=== PATIENT | female | born 1955 | race Caucasian/White ===

== ENCOUNTER 2023-01-18 09:35 | Inpatient (IN) | payer MEDICARE, OTHER ==
[~2023-01-18] VITALS: Ht 157.5 cm; Wt 70.4 kg
[2023-01-18] VITALS (36 sets, daily range): BP systolic 88–117; BP diastolic 51–70
[2023-01-18] MEDS ORDERED: FENTANYL 2500MCG+NS 250ML 250 ML IV ONE (09:45)
[2023-01-18] MEDS ORDERED: NALOXONE HCL 0.4 MG/1 ML ML IVP STA (09:47)
[2023-01-18] MEDS ORDERED: NOREPINEPHRIN 4MG/NS 250ML 250 ML IV ONE (09:51)
[2023-01-18 09:59] LABS: ABG HCO3 18.3 mmol/L (21.0-28.0); ABG OXYGEN SATURATION 98.9 % (95.0-99.0); ABG PCO2 45 mmHg (32-45)
[2023-01-18] MEDS ORDERED: CEFTRIAXONE 1G VIAL ONE (09:59)
[2023-01-18] MEDS ORDERED: AZITHROMYCIN 500MG+NS 250ML 250 ML ONE (09:59)
[2023-01-18 10:03] LABS: HEMATOCRIT 41.8 % (36-48); MEAN CORPUSCULAR HEMOGLOBIN 29.7 pg (27.0-33.0); MEAN CORPUSCULAR HGB CONC 31.1 g/dL (32.0-36.0); MEAN CORPUSCULAR VOLUME 95.4 fL (79-99); NUCLEATED RED BLOOD CELLS 0.9 % (0.0-0.19); RED BLOOD CELL COUNT(AUTO) 4.38 MIL/uL (4.00-5.50); RED CELL DISTRIBUTION WIDTH 13.8 % (11.0-15.5); WHITE BLOOD COUNT (AUTO) 15.2 K/uL (4.8-10.8)
[2023-01-18 10:16] LABS: APPEARANCE,URINE CLOUDY (CLEAR); BILIRUBIN,URINE NEGATIVE (NEGATIVE); COLOR,URINE YELLOW (YELLOW); GLUCOSE, URINE (UA) TRACE mg/dL (NEGATIVE); KETONES,URINE NEGATIVE (NEGATIVE); LEUKOCYTE ESTERASE ,URINE NEGATIVE Leu/uL (NEGATIVE); NITRATE,URINE NEGATIVE (NEGATIVE); OCCULT BLOOD,URINE LARGE (NEGATIVE); PH,URINE 5.5 (5.0-8.0); PROTEIN,URINE 70 mg/dL (NEGATIVE); UROBILINOGEN,URINE 0.2 mg/dL (0.2-1.0)
[2023-01-18 10:19] LABS: AMPHET/METH SCREEN,URINE NEGATIVE (NEGATIVE); BARBITURATE SCREEN, URINE NEGATIVE (NEGATIVE); BENZODIAZEPINES SCREEN,URINE POSITIVE (NEGATIVE); CANNABINOID SCREEN,URINE POSITIVE (NEGATIVE); COCAINE SCREEN,URINE NEGATIVE (NEGATIVE); OPIATE SCREEN,URINE NEGATIVE (NEGATIVE); PHENCYCLIDINE SCREEN,URINE NEGATIVE (NEGATIVE)
[2023-01-18] MEDS ORDERED: ASPIRIN 300 MG SUPPOSITORY PR STA (10:20)
[2023-01-18 10:22] LABS: CREATININE 1.8 mg/dL (0.5-1.5); POTASSIUM 3.8 mmol/L (3.5-5.1); TOTAL PROTEIN, SERUM 6.1 g/dL (6.0-8.3)
[2023-01-18] MEDS ORDERED: KETAMINE 50MG/ML SYRINGE 50 MG/ML DISP.SYRIN IV ONE (10:30)
[2023-01-18] MEDS ORDERED: SOLU-MEDROL 125MG VIAL IVP ONE (10:30)
[2023-01-18] MEDS ORDERED: ENOXAPARIN SODIUM 80 MG/0.8 ML SQ ONE (10:30)
[2023-01-18 10:33] LABS: BACTERIA,URINE RARE /HPF (None Seen); MUCUS,URINE RARE LPF (None Seen)
[2023-01-18] MEDS: MIDAZOLAM 100MG-0.9% NS 100ML 50 ML IV PRN (10:49)
[2023-01-18] MEDS ORDERED: DIPHENHYDRAMINE HCL 25 MG CAPSULE PO PRN (11:30)
[2023-01-18] MEDS ORDERED: DiphenhydrAMINE HCL 50 MG/ML VIAL IV PRN (11:30)
[2023-01-18] MEDS ORDERED: MAG/ALUM/SIMETH 30 ML UDCUP PO PRN (11:30)
[2023-01-18] MEDS: NOREPINEPHRIN 4MG/NS 250ML 250 ML IV PRN ×2 (11:30→21:11)
[2023-01-18] MEDS ORDERED: LACTULOSE 20 GM/30 ML UDCUP PO PRN (11:30)
[2023-01-18] MEDS ORDERED: ACETAMINOPHEN 325 MG TAB PO PRN (11:30)
[2023-01-18] MEDS ORDERED: KCL 20 MEQ ERTAB PO PRN (11:30)
[2023-01-18] MEDS ORDERED: NITROGLYCERIN 0.4 MG SL TAB SL PRN (11:30)
[2023-01-18] MEDS ORDERED: LIDOCAINE HCL-MPF 1% 2ML VIAL IV PRN (11:30)
[2023-01-18] MEDS ORDERED: PHARMACY COMMUNICATION MISC PRN (12:00)
[2023-01-18] MEDS ORDERED: LACTATED RINGERS 1000ML 1,503 ML IV SCH (12:00)
[2023-01-18] MEDS ORDERED: CHLORDIAZEPOXIDE HCL 25 MG CAP PO PRN (12:00)
[2023-01-18] MEDS ORDERED: ZOSYN 3.375GM+NS 50ML 50 ML IVPB SCH (12:30)
[2023-01-18] MEDS: 0.9%NACL 1000ML 1,000 ML IV SCH ×2 (12:44→20:04)
[2023-01-18 12:57] LABS: SALICYLATE 4.6 mg/dL (2.8-20.0)
[2023-01-18] MEDS ORDERED: ZOSYN 3.375GM+NS 50ML 50 ML IV SCH (13:00)
[2023-01-18 13:07] LABS: CRP QUANTITATIVE 2.8 mg/L (0.00-9.0); THYROID STIMULATING HORMONE 0.8 uIU/mL (0.36-3.74)
[2023-01-18 13:13] LABS: INR 1.34 (0.85-1.15); PROTHROMBIN TIME 14.4 SEC (9.6-11.6)
[2023-01-18 13:14] LABS: PARTIAL THROMBOPLASTIN TIME 30.6 SEC (26.3-35.5)
[2023-01-18] MEDS ORDERED: DEXTROSE 50%-WATER 50 ML DISP.SYRIN IV PRN (15:00)
[2023-01-18] MEDS ORDERED: GLUCAGON 1MG KIT 1 MG ML IM PRN (15:00)
[2023-01-18] MEDS ORDERED: ACET-2041 PO (15:13)
[2023-01-18] MEDS ORDERED: ASPI-1190 PO (15:13)
[2023-01-18] MEDS ORDERED: DESV100T6 PO (15:13)
[2023-01-18] MEDS ORDERED: TRAZ-187 PO (15:13)
[2023-01-18] MEDS ORDERED: TRAZ-185 PO (15:13)
[2023-01-18 15:15] LABS: ABG BASE EXCESS -3.5 mmol/L (-2.0-3.0); ABG HCO3 21.8 mmol/L (21.0-28.0); ABG OXYGEN SATURATION 96.5 % (95.0-99.0); ABG PCO2 40 mmHg (32-45)
[2023-01-18] MEDS: HEPARIN 5,000 UNIT VIAL SQ SCH ×2 (15:18→20:43)
[2023-01-18] MEDS: INSULIN HUMULIN R 100 UNIT/ML 3ML SQ SCH ×2 (17:44→23:41)
[2023-01-18 18:23] LABS: MYOGLOBIN 589 ng/mL (10-92)
[2023-01-18 18:30] LABS: CREATINE KINASE, TOTAL 497 U/L (21-232)
[2023-01-18] MEDS ORDERED: LACTATED RINGERS 1000ML IV SCH (20:00)
[2023-01-18] MEDS: CHLORHEXIDINE GLUCONATE 473 ML MOUTHWASH MM SCH (20:06)
[2023-01-18] MEDS: LACTULOSE 20 GM/30 ML UDCUP PO SCH (20:06)
[2023-01-18] MEDS: ZOSYN 3.375GM+NS 50ML 50 ML IVPB SCH (20:17)
[2023-01-18 20:29] LABS: HEPATITIS B SURFACE ANTIGEN Non-Reactive (Nonreactive)
[2023-01-18] MEDS ORDERED: THIAMINE HCL 100 MG/ML 2ML VIAL IVP ONE (20:30)
[2023-01-18] MEDS: SOLU-MEDROL 40MG VIAL IVP SCH (20:42)
[2023-01-18] MEDS ORDERED: ENOXAPARIN SODIUM 80 MG/0.8 ML SQ SCH (21:00)
[2023-01-18] MEDS ORDERED: ATORVASTATIN 40 MG TABLET PO SCH (21:00)
[2023-01-18 21:32] LABS: MYOGLOBIN 921 ng/mL (10-92)
[2023-01-18 21:36] LABS: CREATINE KINASE, TOTAL 1000 U/L (21-232)
[2023-01-18] MEDS ORDERED: HEPARIN 25,000 UNITS/250ML D5W 250 ML IV ONE (21:56)
[2023-01-18] MEDS ORDERED: HEPARIN 25,000 UNITS/250ML D5W 250 ML IV SCH (22:00)
[2023-01-18 22:30] LABS: HEPATITIS A IGM ANTIBODY Non-Reactive (Nonreactive); HEPATITIS B CORE IGM ANTIBODY Non-Reactive (Negative)
[2023-01-18 22:34] LABS: HEPATITIS C ANTIBODY Reactive (Nonreactive)
[2023-01-18] MEDS: HEPARIN 25,000 UNITS/250ML D5W 250 ML IV SCH (22:56)
[2023-01-19] VITALS (83 sets, daily range): BP systolic 63–146; BP diastolic 27–91
[2023-01-19] MEDS: LORAZEPAM 2 MG/ML 1 ML VIAL IVP PRN ×3 (01:40→09:23)
[2023-01-19] MEDS ORDERED: FENTANYL 2500MCG+NS 250ML IV.SOLN IV SCH (02:00)
[2023-01-19] MEDS: 0.9%NACL 1000ML 1,000 ML IV SCH ×3 (03:37→20:50)
[2023-01-19 05:30] LABS: BASOPHILS % (AUTO) 0.1 % (0.0-5.0); HEMATOCRIT 37.9 % (36-48); LYMPHOCYTES % (AUTO) 12.8 % (21.0-51.0); MEAN CORPUSCULAR HEMOGLOBIN 29.7 pg (27.0-33.0); MEAN CORPUSCULAR HGB CONC 32.5 g/dL (32.0-36.0); MEAN CORPUSCULAR VOLUME 91.5 fL (79-99); NEUTROPHILS % (AUTO) 79.4 % (40.0-77.0); PLATELET COUNT (AUTO) 245 K/uL (130-400); RED BLOOD CELL COUNT(AUTO) 4.14 MIL/uL (4.00-5.50)
[2023-01-19 05:55] LABS: ALBUMIN 2.6 g/dL (3.5-5.0); CREATININE 1.8 mg/dL (0.5-1.5); MAGNESIUM 1.7 mg/dL (1.80-2.40); PHOSPHORUS 3.5 mg/dL (2.5-4.9); POTASSIUM 4.3 mmol/L (3.5-5.1); TOTAL PROTEIN, SERUM 5.5 g/dL (6.0-8.3)
[2023-01-19] MEDS: INSULIN HUMULIN R 100 UNIT/ML 3ML SQ SCH ×4 (06:00→23:29)
[2023-01-19] MEDS: NOREPINEPHRIN 4MG/NS 250ML 250 ML IV PRN ×2 (06:40→13:31)
[2023-01-19] MEDS: AZITHROMYCIN 500MG+NS 250ML IVPB SCH (07:34)
[2023-01-19] MEDS: MIDAZOLAM 100MG-0.9% NS 100ML 50 ML IV PRN (07:35)
[2023-01-19] MEDS: PANTOPRAZOLE 40 MG/VIAL IVP SCH (08:05)
[2023-01-19] MEDS: LACTULOSE 20 GM/30 ML UDCUP PO SCH ×2 (08:05→21:14)
[2023-01-19] MEDS: SOLU-MEDROL 40MG VIAL IVP SCH ×2 (08:05→21:14)
[2023-01-19] MEDS: ASPIRIN 81MG CHEW TAB PO SCH (08:06)
[2023-01-19] MEDS: CLOPIDOGREL 75MG TAB PO SCH (08:06)
[2023-01-19] MEDS: MULTIVITAMIN TABLET PO SCH (08:06)
[2023-01-19] MEDS: CHLORHEXIDINE GLUCONATE 473 ML MOUTHWASH MM SCH ×2 (08:07→21:15)
[2023-01-19] MEDS ORDERED: ENOXAPARIN SODIUM 80 MG/0.8 ML SQ SCH (09:00)
[2023-01-19] MEDS ORDERED: DEXMEDETOMIDINE 400MCG/NS100ML IV ONE (09:13)
[2023-01-19] MEDS: ZOSYN 3.375GM+NS 50ML 50 ML IVPB SCH ×2 (09:28→21:14)
[2023-01-19] MEDS: DIAZEPAM 5 MG TABLET PO SCH ×2 (10:27→17:42)
[2023-01-19] MEDS: DEXMEDETOMIDINE 400MCG/NS100ML IV SCH ×3 (12:36→22:45)
[2023-01-19 12:54] LABS: INR 1.33 (0.85-1.15); PROTHROMBIN TIME 14.3 SEC (9.6-11.6)
[2023-01-19 13:59] LABS: PARTIAL THROMBOPLASTIN TIME > 139.0 SEC (26.3-35.5)
[2023-01-19 15:35] LABS: ABG BASE EXCESS -2.8 mmol/L (-2.0-3.0); ABG HCO3 21.5 mmol/L (21.0-28.0); ABG OXYGEN SATURATION 96.9 % (95.0-99.0); ABG PCO2 36 mmHg (32-45)
[2023-01-19] MEDS ORDERED: LACTATED RINGERS 1000ML IV SCH (16:00)
[2023-01-19] MEDS: HEPARIN 25,000 UNITS/250ML D5W 250 ML IV SCH (18:28)
[2023-01-19 20:10] LABS: INR 1.23 (0.85-1.15); PROTHROMBIN TIME 13.3 SEC (9.6-11.6)
[2023-01-19 20:32] LABS: PARTIAL THROMBOPLASTIN TIME 125.7 SEC (26.3-35.5)
[2023-01-20] VITALS (24 sets, daily range): BP systolic 103–159; BP diastolic 60–98
[2023-01-20] MEDS: DIAZEPAM 5 MG TABLET PO SCH ×3 (01:15→17:02)
[2023-01-20 01:58] LABS: BASOPHILS % (AUTO) 0.1 % (0.0-5.0); HEMATOCRIT 37.2 % (36-48); LYMPHOCYTES % (AUTO) 13.7 % (21.0-51.0); MEAN CORPUSCULAR HEMOGLOBIN 29.5 pg (27.0-33.0); MEAN CORPUSCULAR HGB CONC 32.5 g/dL (32.0-36.0); MEAN CORPUSCULAR VOLUME 90.7 fL (79-99); MONOCYTES % (AUTO) 7.7 % (3.0-13.0); NEUTROPHILS % (AUTO) 77.9 % (40.0-77.0); PLATELET COUNT (AUTO) 196 K/uL (130-400); RED CELL DISTRIBUTION WIDTH 14.3 % (11.0-15.5); WHITE BLOOD COUNT (AUTO) 12.1 K/uL (4.8-10.8)
[2023-01-20 02:09] LABS: INR 1.2 (0.85-1.15); PROTHROMBIN TIME 12.9 SEC (9.6-11.6)
[2023-01-20 02:10] LABS: PARTIAL THROMBOPLASTIN TIME 78.5 SEC (26.3-35.5)
[2023-01-20 02:12] LABS: ALBUMIN 2.7 g/dL (3.5-5.0); CREATININE 1.3 mg/dL (0.5-1.5); MAGNESIUM 1.9 mg/dL (1.80-2.40); PHOSPHORUS 2.6 mg/dL (2.5-4.9); POTASSIUM 4.2 mmol/L (3.5-5.1); TOTAL PROTEIN, SERUM 5.9 g/dL (6.0-8.3)
[2023-01-20] MEDS: DEXMEDETOMIDINE 400MCG/NS100ML IV SCH ×5 (03:30→20:35)
[2023-01-20] MEDS: NOREPINEPHRIN 4MG/NS 250ML 250 ML IV PRN (04:10)
[2023-01-20] MEDS: INSULIN HUMULIN R 100 UNIT/ML 3ML SQ SCH ×3 (05:36→17:23)
[2023-01-20 07:14] LABS: ABG BASE EXCESS -1.8 mmol/L (-2.0-3.0); ABG HCO3 21.1 mmol/L (21.0-28.0); ABG OXYGEN SATURATION 97.3 % (95.0-99.0); ABG PCO2 31 mmHg (32-45)
[2023-01-20] MEDS: AZITHROMYCIN 500MG+NS 250ML IVPB SCH (08:31)
[2023-01-20 08:32] LABS: ALBUMIN 1.9 g/dL (3.5-5.0); CREATININE 0.8 mg/dL (0.5-1.5); MAGNESIUM 1.5 mg/dL (1.80-2.40); TOTAL PROTEIN, SERUM 4.1 g/dL (6.0-8.3)
[2023-01-20] MEDS: LACTULOSE 20 GM/30 ML UDCUP PO SCH ×2 (08:32→21:33)
[2023-01-20] MEDS: SOLU-MEDROL 40MG VIAL IVP SCH ×2 (08:32→21:32)
[2023-01-20] MEDS: PANTOPRAZOLE 40 MG/VIAL IVP SCH (08:32)
[2023-01-20] MEDS: CLOPIDOGREL 75MG TAB PO SCH (08:33)
[2023-01-20] MEDS: MULTIVITAMIN TABLET PO SCH (08:33)
[2023-01-20] MEDS: ASPIRIN 81MG CHEW TAB PO SCH (08:33)
[2023-01-20] MEDS: CHLORHEXIDINE GLUCONATE 473 ML MOUTHWASH MM SCH ×2 (08:34→21:34)
[2023-01-20] MEDS: 0.9%NACL 1000ML 1,000 ML IV SCH ×3 (08:34→21:37)
[2023-01-20] MEDS: ZOSYN 3.375GM+NS 50ML 50 ML IVPB SCH ×2 (08:38→21:32)
[2023-01-20 08:50] LABS: BASOPHILS % (AUTO) 0.1 % (0.0-5.0); HEMATOCRIT 35.9 % (36-48); LYMPHOCYTES % (AUTO) 19.8 % (21.0-51.0); MEAN CORPUSCULAR HEMOGLOBIN 29.9 pg (27.0-33.0); MEAN CORPUSCULAR VOLUME 93.2 fL (79-99); MONOCYTES % (AUTO) 9.1 % (3.0-13.0); NEUTROPHILS % (AUTO) 70.2 % (40.0-77.0); PLATELET COUNT (AUTO) 131 K/uL (130-400); RED BLOOD CELL COUNT(AUTO) 3.85 MIL/uL (4.00-5.50); RED CELL DISTRIBUTION WIDTH 14.2 % (11.0-15.5); WHITE BLOOD COUNT (AUTO) 8.6 K/uL (4.8-10.8)
[2023-01-20 10:13] LABS: INR 1.2 (0.85-1.15); PARTIAL THROMBOPLASTIN TIME 62.1 SEC (26.3-35.5); PROTHROMBIN TIME 12.9 SEC (9.6-11.6)
[2023-01-20] MEDS: LORAZEPAM 2 MG/ML 1 ML VIAL IVP PRN (10:37)
[2023-01-20] MEDS: POTASSIUM CHLORIDE 10% ELIXIR 20 MEQ/15 ML UDCUP PO PRN ×4 (10:57→21:50)
[2023-01-20] MEDS: MAGNESIUM 2GM PREMIX 50ML 50 ML IV PRN (10:58)
[2023-01-20] MEDS: POTASSIUM CHLORIDE 20MEQ/100ML 100 ML IV PRN (11:03)
[2023-01-20 14:15] LABS: INR 1.15 (0.85-1.15); PROTHROMBIN TIME 12.4 SEC (9.6-11.6)
[2023-01-20 14:17] LABS: PARTIAL THROMBOPLASTIN TIME 59.6 SEC (26.3-35.5)
[2023-01-20 16:07] LABS: HEMOGLOBIN A1C 5.3 % (4.0-6.0)
[2023-01-20] MEDS: FUROSEMIDE 20MG VIAL IV SCH (17:00)
[2023-01-20] MEDS: MIDAZOLAM 100MG-0.9% NS 100ML 50 ML IV PRN (20:37)
[2023-01-21] VITALS (41 sets, daily range): BP systolic 104–171; BP diastolic 43–106
[2023-01-21] MEDS: POTASSIUM CHLORIDE 10% ELIXIR 20 MEQ/15 ML UDCUP PO PRN (00:37)
[2023-01-21] MEDS: DIAZEPAM 5 MG TABLET PO SCH ×2 (00:37→09:13)
[2023-01-21] MEDS: 0.9%NACL 1000ML 1,000 ML IV SCH ×2 (00:54→13:08)
[2023-01-21] MEDS ORDERED: MIDAZOLAM HCL 1 MG/ML 2ML VIAL ONE (04:33)
[2023-01-21] MEDS: FUROSEMIDE 20MG VIAL IV SCH ×2 (04:46→16:33)
[2023-01-21] MEDS ORDERED: MIDAZOLAM HCL 1 MG/ML 2ML VIAL IVP PRN (05:00)
[2023-01-21 05:21] LABS: HEMATOCRIT 34.1 % (36-48); LYMPHOCYTES % (AUTO) 15.7 % (21.0-51.0); MEAN CORPUSCULAR HEMOGLOBIN 29.5 pg (27.0-33.0); MEAN CORPUSCULAR HGB CONC 32.3 g/dL (32.0-36.0); MEAN CORPUSCULAR VOLUME 91.4 fL (79-99); MONOCYTES % (AUTO) 5.9 % (3.0-13.0); PLATELET COUNT (AUTO) 125 K/uL (130-400); RED BLOOD CELL COUNT(AUTO) 3.73 MIL/uL (4.00-5.50); RED CELL DISTRIBUTION WIDTH 14.2 % (11.0-15.5); WHITE BLOOD COUNT (AUTO) 8.1 K/uL (4.8-10.8)
[2023-01-21] MEDS: INSULIN HUMULIN R 100 UNIT/ML 3ML SQ SCH ×5 (05:31→23:28)
[2023-01-21 05:33] LABS: INR 1.15 (0.85-1.15); PROTHROMBIN TIME 12.4 SEC (9.6-11.6)
[2023-01-21 05:34] LABS: PARTIAL THROMBOPLASTIN TIME 26.5 SEC (26.3-35.5)
[2023-01-21 05:37] LABS: ALBUMIN 2.6 g/dL (3.5-5.0); CREATININE 1.1 mg/dL (0.5-1.5); MAGNESIUM 2.5 mg/dL (1.80-2.40); PHOSPHORUS 3.3 mg/dL (2.5-4.9); POTASSIUM 4.3 mmol/L (3.5-5.1); TOTAL PROTEIN, SERUM 5.4 g/dL (6.0-8.3)
[2023-01-21] MEDS: MIDAZOLAM 100MG-0.9% NS 100ML 50 ML IV PRN (06:17)
[2023-01-21] MEDS: CHLORHEXIDINE GLUCONATE 473 ML MOUTHWASH MM SCH ×2 (08:00→21:33)
[2023-01-21] MEDS: MULTIVITAMIN TABLET PO SCH (09:12)
[2023-01-21] MEDS: SOLU-MEDROL 40MG VIAL IVP SCH ×2 (09:12→20:34)
[2023-01-21] MEDS: LACTULOSE 20 GM/30 ML UDCUP PO SCH ×2 (09:13→21:28)
[2023-01-21] MEDS: CLOPIDOGREL 75MG TAB PO SCH (09:13)
[2023-01-21] MEDS: PANTOPRAZOLE 40 MG/VIAL IVP SCH (09:13)
[2023-01-21] MEDS: ASPIRIN 81MG CHEW TAB PO SCH (09:13)
[2023-01-21] MEDS: ENOXAPARIN SODIUM 80 MG/0.8 ML SQ SCH ×2 (09:14→21:29)
[2023-01-21] MEDS: ZOSYN 3.375GM+NS 50ML 50 ML IVPB SCH ×2 (09:14→20:33)
[2023-01-21] MEDS: AZITHROMYCIN 500MG+NS 250ML IVPB SCH (09:14)
[2023-01-21 12:00] LABS: ABG BASE EXCESS -4.1 mmol/L (-2.0-3.0); ABG HCO3 19.1 mmol/L (21.0-28.0); ABG OXYGEN SATURATION 96.8 % (95.0-99.0); ABG PCO2 30 mmHg (32-45)
[2023-01-21] MEDS ORDERED: ZIPRASIDONE MESYLATE 20 MG/VIAL IM PRN (14:30)
[2023-01-21] MEDS: DIAZEPAM 5 MG/ML 2 ML SYG IM SCH ×2 (15:14→22:18)
[2023-01-21] MEDS: DEXMEDETOMIDINE 400MCG/NS100ML IV SCH ×3 (16:51→21:17)
[2023-01-21] MEDS ORDERED: LORAZEPAM 2 MG/ML 1 ML VIAL IVP PRN (20:00)
[2023-01-21] MEDS ORDERED: THIAMINE HCL 100 MG/ML 2ML VIAL IVP ONE (20:00)
[2023-01-21 23:56] LABS: ABG BASE EXCESS -2.9 mmol/L (-2.0-3.0); ABG OXYGEN SATURATION 94.6 % (95.0-99.0); ABG PCO2 29 mmHg (32-45)
[2023-01-22] VITALS (41 sets, daily range): BP systolic 99–152; BP diastolic 49–87
[2023-01-22] MEDS: IPRATROPIUM/ALBUTEROL SULFATE 3 ML SOLUTION IH SCH ×5 (01:16→23:33)
[2023-01-22] MEDS: DEXMEDETOMIDINE 400MCG/NS100ML IV SCH ×6 (01:57→23:24)
[2023-01-22] MEDS: ZIPRASIDONE MESYLATE 20 MG/VIAL IM PRN (02:39)
[2023-01-22 03:12] LABS: HEMATOCRIT 31.3 % (36-48); LYMPHOCYTES % (AUTO) 14.2 % (21.0-51.0); MEAN CORPUSCULAR HEMOGLOBIN 29.1 pg (27.0-33.0); MEAN CORPUSCULAR HGB CONC 32.6 g/dL (32.0-36.0); MEAN CORPUSCULAR VOLUME 89.2 fL (79-99); MONOCYTES % (AUTO) 7.6 % (3.0-13.0); NEUTROPHILS % (AUTO) 77.7 % (40.0-77.0); PLATELET COUNT (AUTO) 94 K/uL (130-400); RED BLOOD CELL COUNT(AUTO) 3.51 MIL/uL (4.00-5.50); RED CELL DISTRIBUTION WIDTH 13.9 % (11.0-15.5); WHITE BLOOD COUNT (AUTO) 6.5 K/uL (4.8-10.8)
[2023-01-22 03:27] LABS: ALBUMIN 2.8 g/dL (3.5-5.0); CREATININE 1.3 mg/dL (0.5-1.5); MAGNESIUM 2.4 mg/dL (1.80-2.40); POTASSIUM 4.4 mmol/L (3.5-5.1); TOTAL PROTEIN, SERUM 5.4 g/dL (6.0-8.3)
[2023-01-22] MEDS: INSULIN HUMULIN R 100 UNIT/ML 3ML SQ SCH ×4 (05:30→23:06)
[2023-01-22] MEDS: DIAZEPAM 5 MG/ML 2 ML SYG IM SCH ×3 (06:44→22:26)
[2023-01-22] MEDS: AZITHROMYCIN 500MG+NS 250ML IVPB SCH (07:50)
[2023-01-22] MEDS: CLOPIDOGREL 75MG TAB PO SCH (08:20)
[2023-01-22] MEDS: ASPIRIN 81MG CHEW TAB PO SCH (08:20)
[2023-01-22] MEDS: MULTIVITAMIN TABLET PO SCH (08:20)
[2023-01-22] MEDS: PANTOPRAZOLE 40 MG/VIAL IVP SCH (08:21)
[2023-01-22] MEDS: THIAMINE HCL 100 MG/ML 2ML VIAL IVP SCH (08:21)
[2023-01-22] MEDS: SOLU-MEDROL 40MG VIAL IVP SCH ×2 (08:21→20:27)
[2023-01-22] MEDS: LACTULOSE 20 GM/30 ML UDCUP PO SCH ×2 (08:22→20:28)
[2023-01-22] MEDS: CHLORHEXIDINE GLUCONATE 473 ML MOUTHWASH MM SCH ×2 (09:00→20:28)
[2023-01-22] MEDS: ZOSYN 3.375GM+NS 50ML 50 ML IVPB SCH ×2 (09:52→20:27)
[2023-01-22] MEDS ORDERED: CLONAZEPAM 0.5 MG TABLET SL ONE (14:30)
[2023-01-22] MEDS ORDERED: 0.9% NACL 250ML IV SCH (15:00)
[2023-01-22] MEDS ORDERED: VANCOMYCIN PROTOCOL PER PHARMACY IV SCH (15:00)
[2023-01-22] MEDS ORDERED: VANCOMYCIN 1G VIAL IVPB SCH (15:00)
[2023-01-22] MEDS ORDERED: VANCOMYCIN 1.5 GM/250 ML BAG IV ONE (16:00)
[2023-01-22] MEDS: CLONAZEPAM 0.5 MG TABLET PO PRN (17:26)
[2023-01-22] MEDS: LORAZEPAM 2 MG/ML 1 ML VIAL IVP PRN (18:35)
[2023-01-23] VITALS (40 sets, daily range): BP systolic 92–156; BP diastolic 38–86
[2023-01-23] MEDS: ZIPRASIDONE MESYLATE 20 MG/VIAL IM PRN (00:46)
[2023-01-23] MEDS: CLONAZEPAM 0.5 MG TABLET PO PRN (02:53)
[2023-01-23] MEDS: DEXMEDETOMIDINE 400MCG/NS100ML IV SCH ×4 (03:44→19:28)
[2023-01-23 04:02] LABS: HEMATOCRIT 28.5 % (36-48); LYMPHOCYTES % (AUTO) 10.8 % (21.0-51.0); MEAN CORPUSCULAR HEMOGLOBIN 29.9 pg (27.0-33.0); NEUTROPHILS % (AUTO) 77.4 % (40.0-77.0); PLATELET COUNT (AUTO) 84 K/uL (130-400); RED BLOOD CELL COUNT(AUTO) 3.24 MIL/uL (4.00-5.50); RED CELL DISTRIBUTION WIDTH 13.8 % (11.0-15.5); WHITE BLOOD COUNT (AUTO) 4.9 K/uL (4.8-10.8)
[2023-01-23 04:18] LABS: ALBUMIN 2.9 g/dL (3.5-5.0); CREATININE 1.2 mg/dL (0.5-1.5); MAGNESIUM 2.2 mg/dL (1.80-2.40); PHOSPHORUS 3.6 mg/dL (2.5-4.9); POTASSIUM 3.6 mmol/L (3.5-5.1); TOTAL PROTEIN, SERUM 5.5 g/dL (6.0-8.3)
[2023-01-23] MEDS: POTASSIUM CHLORIDE 10% ELIXIR 20 MEQ/15 ML UDCUP PO PRN ×2 (04:20→06:16)
[2023-01-23] MEDS: INSULIN HUMULIN R 100 UNIT/ML 3ML SQ SCH ×3 (05:09→18:00)
[2023-01-23] MEDS: DIAZEPAM 5 MG/ML 2 ML SYG IM SCH (06:11)
[2023-01-23] MEDS: IPRATROPIUM/ALBUTEROL SULFATE 3 ML SOLUTION IH SCH (07:04)
[2023-01-23] MEDS: PANTOPRAZOLE 40 MG/VIAL IVP SCH (08:38)
[2023-01-23] MEDS: LACTULOSE 20 GM/30 ML UDCUP PO SCH ×2 (08:38→20:40)
[2023-01-23] MEDS: THIAMINE HCL 100 MG/ML 2ML VIAL IVP SCH (08:38)
[2023-01-23] MEDS: CLOPIDOGREL 75MG TAB PO SCH (08:39)
[2023-01-23] MEDS: MULTIVITAMIN TABLET PO SCH (08:39)
[2023-01-23] MEDS: ZOSYN 3.375GM+NS 50ML 50 ML IVPB SCH ×2 (08:39→20:41)
[2023-01-23] MEDS: SOLU-MEDROL 40MG VIAL IVP SCH ×2 (08:39→20:41)
[2023-01-23] MEDS: ASPIRIN 81MG CHEW TAB PO SCH (08:39)
[2023-01-23] MEDS: CHLORHEXIDINE GLUCONATE 473 ML MOUTHWASH MM SCH ×2 (08:40→21:00)
[2023-01-23] MEDS ORDERED: DIAZEPAM 5 MG TABLET PO SCH (14:00)
[2023-01-23] MEDS ORDERED: VANCOMYCIN 750MG VIAL IVPB SCH (16:00)
[2023-01-23] MEDS ORDERED: IPRATROPIUM/ALBUTEROL SULFATE 3 ML SOLUTION IH ONE (21:30)
[2023-01-23] MEDS: CLONAZEPAM 0.5 MG TABLET PO SCH (22:19)
[2023-01-23] MEDS: CEFTRIAXONE 1G VIAL IVP SCH (22:19)
[2023-01-24] VITALS (46 sets, daily range): BP systolic 95–165; BP diastolic 56–86
[2023-01-24] MEDS: IPRATROPIUM/ALBUTEROL SULFATE 3 ML SOLUTION IH SCH ×5 (00:11→23:10)
[2023-01-24] MEDS: DEXMEDETOMIDINE 400MCG/NS100ML IV SCH ×2 (01:29→06:14)
[2023-01-24 03:54] LABS: BASOPHILS % (AUTO) 0.2 % (0.0-5.0); HEMATOCRIT 28.3 % (36-48); LYMPHOCYTES % (AUTO) 12.6 % (21.0-51.0); MEAN CORPUSCULAR HEMOGLOBIN 29.4 pg (27.0-33.0); MEAN CORPUSCULAR HGB CONC 33.2 g/dL (32.0-36.0); MEAN CORPUSCULAR VOLUME 88.4 fL (79-99); MONOCYTES % (AUTO) 10.6 % (3.0-13.0); NEUTROPHILS % (AUTO) 75.1 % (40.0-77.0); NUCLEATED RED BLOOD CELLS 0.3 % (0.0-0.19); PLATELET COUNT (AUTO) 78 K/uL (130-400); RED CELL DISTRIBUTION WIDTH 14.3 % (11.0-15.5); WHITE BLOOD COUNT (AUTO) 5.9 K/uL (4.8-10.8)
[2023-01-24 04:17] LABS: ALBUMIN 2.8 g/dL (3.5-5.0); POTASSIUM 3.4 mmol/L (3.5-5.1); TOTAL PROTEIN, SERUM 5.2 g/dL (6.0-8.3)
[2023-01-24 04:39] LABS: B-TYPE NATRIURETIC PEPTIDE 835 pg/mL (0-100)
[2023-01-24] MEDS: CLONAZEPAM 0.5 MG TABLET PO SCH ×3 (05:34→21:25)
[2023-01-24] MEDS: INSULIN HUMULIN R 100 UNIT/ML 3ML SQ SCH ×4 (05:34→17:19)
[2023-01-24] MEDS: PANTOPRAZOLE 40 MG/VIAL IVP SCH (08:12)
[2023-01-24] MEDS: PREDNISONE 20 MG TABLET PO SCH (08:12)
[2023-01-24] MEDS: CLOPIDOGREL 75MG TAB PO SCH (08:12)
[2023-01-24] MEDS: MULTIVITAMIN TABLET PO SCH (08:12)
[2023-01-24] MEDS: THIAMINE HCL 100 MG/ML 2ML VIAL IVP SCH (08:13)
[2023-01-24] MEDS: LACTULOSE 20 GM/30 ML UDCUP PO SCH ×2 (08:13→20:20)
[2023-01-24] MEDS: ASPIRIN 81MG CHEW TAB PO SCH (08:13)
[2023-01-24] MEDS: CHLORHEXIDINE GLUCONATE 473 ML MOUTHWASH MM SCH ×2 (08:14→20:22)
[2023-01-24] MEDS: DIAZEPAM 5 MG TABLET PO PRN ×2 (10:34→23:00)
[2023-01-24] MEDS: ONDANSETRON 4MG INJ IV PRN (12:14)
[2023-01-24] MEDS: RIVASTIGMINE 4.6MG/24HR PATCH TD SCH (17:18)
[2023-01-24] MEDS: RISPERIDONE 1 MG TABLET PO SCH ×2 (17:18→20:20)
[2023-01-24] MEDS: CEFTRIAXONE 1G VIAL IVP SCH (20:20)
[2023-01-25] VITALS (17 sets, daily range): BP systolic 124–158; BP diastolic 60–91
[2023-01-25] MEDS: ACETAMINOPHEN 325 MG TAB PO PRN (00:49)
[2023-01-25 04:03] LABS: HEMATOCRIT 30.4 % (36-48); MEAN CORPUSCULAR HEMOGLOBIN 29.7 pg (27.0-33.0); MEAN CORPUSCULAR HGB CONC 32.6 g/dL (32.0-36.0); MEAN CORPUSCULAR VOLUME 91.3 fL (79-99); NUCLEATED RED BLOOD CELLS 0.3 % (0.0-0.19); PLATELET COUNT (AUTO) 71 K/uL (130-400); RED BLOOD CELL COUNT(AUTO) 3.33 MIL/uL (4.00-5.50); RED CELL DISTRIBUTION WIDTH 14.5 % (11.0-15.5); WHITE BLOOD COUNT (AUTO) 7.3 K/uL (4.8-10.8)
[2023-01-25 04:14] LABS: CREATININE 0.9 mg/dL (0.5-1.5); POTASSIUM 3.3 mmol/L (3.5-5.1)
[2023-01-25 04:16] LABS: BASOPHILS % (AUTO) 0.1 % (0.0-5.0); EOSINOPHILS % (AUTO) 1.4 % (0.0-8.0); LYMPHOCYTES % (AUTO) 21.3 % (21.0-51.0); MONOCYTES % (AUTO) 10.4 % (3.0-13.0); NEUTROPHILS % (AUTO) 65.3 % (40.0-77.0)
[2023-01-25] MEDS: POTASSIUM CHLORIDE 20MEQ/100ML 100 ML IV PRN (04:18)
[2023-01-25] MEDS: CLONAZEPAM 0.5 MG TABLET PO SCH ×2 (05:45→13:58)
[2023-01-25] MEDS: INSULIN HUMULIN R 100 UNIT/ML 3ML SQ SCH ×4 (06:00→17:10)
[2023-01-25] MEDS: IPRATROPIUM/ALBUTEROL SULFATE 3 ML SOLUTION IH SCH ×4 (07:18→23:09)
[2023-01-25] MEDS: PANTOPRAZOLE 40 MG/VIAL IVP SCH (10:30)
[2023-01-25] MEDS: ASPIRIN 81MG CHEW TAB PO SCH (10:30)
[2023-01-25] MEDS: RISPERIDONE 1 MG TABLET PO SCH ×2 (10:30→21:37)
[2023-01-25] MEDS: PREDNISONE 20 MG TABLET PO SCH (10:30)
[2023-01-25] MEDS: THIAMINE HCL 100 MG/ML 2ML VIAL IVP SCH (10:30)
[2023-01-25] MEDS: CLOPIDOGREL 75MG TAB PO SCH (10:30)
[2023-01-25] MEDS: MULTIVITAMIN TABLET PO SCH (10:30)
[2023-01-25] MEDS: LACTULOSE 20 GM/30 ML UDCUP PO SCH ×2 (10:30→21:37)
[2023-01-25] MEDS: POTASSIUM CHLORIDE 10% ELIXIR 20 MEQ/15 ML UDCUP PO PRN ×2 (10:30→15:18)
[2023-01-25] MEDS: CHLORHEXIDINE GLUCONATE 473 ML MOUTHWASH MM SCH ×2 (10:52→21:36)
[2023-01-25] MEDS: PHENOL 177 ML BOTTLE PO PRN (15:12)
[2023-01-25] MEDS: GUAIFENESIN-DM 200/20 MG 10 ML PO PRN ×2 (15:14→21:37)
[2023-01-25] MEDS: RIVASTIGMINE 4.6MG/24HR PATCH TD SCH (17:58)
[2023-01-25] MEDS: CEFTRIAXONE 1G VIAL IVP SCH (21:37)
[2023-01-26] MEDS: CLONAZEPAM 0.5 MG TABLET PO SCH ×4 (00:18→20:14)
[2023-01-26] MEDS: ONDANSETRON 4MG INJ IV PRN (02:38)
[2023-01-26 04:33] VITALS: BP 162/79
[2023-01-26] MEDS: DIAZEPAM 5 MG TABLET PO PRN (05:39)
[2023-01-26] MEDS: INSULIN HUMULIN R 100 UNIT/ML 3ML SQ SCH ×4 (05:59→17:15)
[2023-01-26] MEDS: IPRATROPIUM/ALBUTEROL SULFATE 3 ML SOLUTION IH SCH ×4 (06:00→23:41)
[2023-01-26] MEDS: ZIPRASIDONE MESYLATE 20 MG/VIAL IM PRN (07:23)
[2023-01-26] MEDS: GUAIFENESIN-DM 200/20 MG 10 ML PO PRN ×2 (07:23→16:43)
[2023-01-26 08:59] VITALS: BP 155/79
[2023-01-26] MEDS: LACTULOSE 20 GM/30 ML UDCUP PO SCH ×2 (09:00→20:11)
[2023-01-26] MEDS: PANTOPRAZOLE 40 MG/VIAL IVP SCH (09:50)
[2023-01-26] MEDS: THIAMINE HCL 100 MG/ML 2ML VIAL IVP SCH (09:51)
[2023-01-26] MEDS: ASPIRIN 81MG CHEW TAB PO SCH (09:52)
[2023-01-26] MEDS: CLOPIDOGREL 75MG TAB PO SCH (09:52)
[2023-01-26] MEDS: PREDNISONE 20 MG TABLET PO SCH (09:53)
[2023-01-26] MEDS: RISPERIDONE 1 MG TABLET PO SCH ×2 (09:53→20:14)
[2023-01-26] MEDS: MULTIVITAMIN TABLET PO SCH (09:53)
[2023-01-26] MEDS: CHLORHEXIDINE GLUCONATE 473 ML MOUTHWASH MM SCH ×2 (09:56→20:39)
[2023-01-26 11:48] VITALS: BP 162/90
[2023-01-26] MEDS: RIVASTIGMINE 4.6MG/24HR PATCH TD SCH (16:43)
[2023-01-26 16:56] VITALS: BP 145/73
[2023-01-26 19:25] VITALS: BP 148/78
[2023-01-26] MEDS: CEFTRIAXONE 1G VIAL IVP SCH (20:14)
[2023-01-26 23:40] VITALS: BP 126/64
[2023-01-27] MEDS: ZIPRASIDONE MESYLATE 20 MG/VIAL IM PRN (01:18)
[2023-01-27 04:45] VITALS: BP 132/74
[2023-01-27] MEDS: CLONAZEPAM 0.5 MG TABLET PO SCH (05:42)
[2023-01-27] MEDS: IPRATROPIUM/ALBUTEROL SULFATE 3 ML SOLUTION IH SCH ×4 (06:00→23:24)
[2023-01-27] MEDS: INSULIN HUMULIN R 100 UNIT/ML 3ML SQ SCH ×5 (06:00→20:17)
[2023-01-27 07:15] VITALS: BP 167/78
[2023-01-27] MEDS: CHLORHEXIDINE GLUCONATE 473 ML MOUTHWASH MM SCH (09:00)
[2023-01-27] MEDS: LACTULOSE 20 GM/30 ML UDCUP PO SCH ×2 (09:00→21:00)
[2023-01-27] MEDS: THIAMINE HCL 100 MG/ML 2ML VIAL IVP SCH (09:29)
[2023-01-27] MEDS: PANTOPRAZOLE 40 MG/VIAL IVP SCH (09:29)
[2023-01-27 10:07] LABS: BASOPHILS % (AUTO) 0.1 % (0.0-5.0); EOSINOPHILS % (AUTO) 2.6 % (0.0-8.0); HEMATOCRIT 33.1 % (36-48); LYMPHOCYTES % (AUTO) 15.7 % (21.0-51.0); MEAN CORPUSCULAR HEMOGLOBIN 29.5 pg (27.0-33.0); MEAN CORPUSCULAR HGB CONC 32.6 g/dL (32.0-36.0); MEAN CORPUSCULAR VOLUME 90.4 fL (79-99); MONOCYTES % (AUTO) 8.2 % (3.0-13.0); NEUTROPHILS % (AUTO) 72.5 % (40.0-77.0); PLATELET COUNT (AUTO) 136 K/uL (130-400); RED BLOOD CELL COUNT(AUTO) 3.66 MIL/uL (4.00-5.50); RED CELL DISTRIBUTION WIDTH 13.8 % (11.0-15.5); WHITE BLOOD COUNT (AUTO) 8.9 K/uL (4.8-10.8)
[2023-01-27 10:08] LABS: RETICULOCYTE % (AUTO) 2.91 % (0.42-2.23)
[2023-01-27] MEDS ORDERED: DIAZEPAM 5 MG/ML 2 ML SYG IV PRN (10:30)
[2023-01-27 10:31] LABS: % IRON SATURATION 18.6 % (22-44)
[2023-01-27 10:57] LABS: ALANINE AMINOTRANSFERASE 93 U/L (12-78); ALBUMIN 2.8 g/dL (3.5-5.0); ASPARTATE AMINOTRANSFERASE 56 U/L (10-37); CARBON DIOXIDE 30 mmol/L (21-32); CHLORIDE 109 mmol/L (101-111); CREATININE 0.7 mg/dL (0.5-1.5); GLOMERULAR FILTR. RATE CALC 96 mL/min (>90); GLUCOSE,RANDOM 97 mg/dL (70-105); MYOGLOBIN 131 ng/mL (10-92); SODIUM SERUM 145 mmol/L (136-145); TOTAL PROTEIN, SERUM 5.6 g/dL (6.0-8.3); UREA NITROGEN, BLOOD 11 mg/dL (7-18)
[2023-01-27] MEDS: SOLU-MEDROL 40MG VIAL IVP SCH ×2 (10:58→19:22)
[2023-01-27 11:00] LABS: POTASSIUM 2.9 mmol/L (3.5-5.1)
[2023-01-27 12:00] VITALS: BP 151/70
[2023-01-27] MEDS: POTASSIUM CHLORIDE 20MEQ/100ML 100 ML IV PRN (15:34)
[2023-01-27] MEDS: RIVASTIGMINE 4.6MG/24HR PATCH TD SCH (15:37)
[2023-01-27 16:00] VITALS: BP 143/68
[2023-01-27] MEDS: DIAZEPAM 5 MG/ML 2 ML SYG IV PRN ×2 (16:01→17:00)
[2023-01-27] MEDS: CEPHALEXIN 500 MG CAPSULE PO SCH (16:30)
[2023-01-27 19:49] VITALS: BP 153/85
[2023-01-27] MEDS ORDERED: ZIPRASIDONE MESYLATE 20 MG/VIAL IM PRN (20:00)
[2023-01-27] MEDS: RISPERIDONE 1 MG TABLET PO SCH (21:40)
[2023-01-27] MEDS: CEFTRIAXONE 1G VIAL IVP SCH (21:40)
[2023-01-27 23:32] VITALS: BP 169/82
[2023-01-28 03:23] VITALS: BP 145/84
[2023-01-28] MEDS: CEPHALEXIN 500 MG CAPSULE PO SCH (03:46)
[2023-01-28] MEDS: SOLU-MEDROL 40MG VIAL IVP SCH ×2 (03:47→09:26)
[2023-01-28 04:05] LABS: BASOPHILS % (AUTO) 0.1 % (0.0-5.0); EOSINOPHILS % (AUTO) 0.1 % (0.0-8.0); HEMATOCRIT 31.8 % (36-48); LYMPHOCYTES % (AUTO) 8.4 % (21.0-51.0); MEAN CORPUSCULAR HEMOGLOBIN 29.6 pg (27.0-33.0); MEAN CORPUSCULAR HGB CONC 33.6 g/dL (32.0-36.0); MEAN CORPUSCULAR VOLUME 87.8 fL (79-99); MONOCYTES % (AUTO) 6.6 % (3.0-13.0); NEUTROPHILS % (AUTO) 84.3 % (40.0-77.0); PLATELET COUNT (AUTO) 146 K/uL (130-400); RED BLOOD CELL COUNT(AUTO) 3.62 MIL/uL (4.00-5.50); RED CELL DISTRIBUTION WIDTH 13.6 % (11.0-15.5); WHITE BLOOD COUNT (AUTO) 9.3 K/uL (4.8-10.8)
[2023-01-28] MEDS: PHENOL 177 ML BOTTLE PO PRN (04:42)
[2023-01-28] MEDS: DIAZEPAM 5 MG/ML 2 ML SYG IV PRN (04:43)
[2023-01-28 04:44] LABS: MAGNESIUM 1.7 mg/dL (1.80-2.40); PHOSPHORUS 4.1 mg/dL (2.5-4.9); THYROID STIMULATING HORMONE 0.93 uIU/mL (0.36-3.74)
[2023-01-28] MEDS: INSULIN HUMULIN R 100 UNIT/ML 3ML SQ SCH ×4 (05:13→19:37)
[2023-01-28 05:24] LABS: POTASSIUM 3.5 mmol/L (3.5-5.1)
[2023-01-28] MEDS: MAGNESIUM 2GM PREMIX 50ML 50 ML IV PRN (05:59)
[2023-01-28] MEDS: IPRATROPIUM/ALBUTEROL SULFATE 3 ML SOLUTION IH SCH ×4 (06:57→23:15)
[2023-01-28 08:00] VITALS: BP 148/69
[2023-01-28] MEDS: LACTULOSE 20 GM/30 ML UDCUP PO SCH ×2 (09:00→20:35)
[2023-01-28] MEDS: THIAMINE HCL 100 MG/ML 2ML VIAL IVP SCH (09:26)
[2023-01-28] MEDS: PANTOPRAZOLE 40 MG/VIAL IVP SCH (09:26)
[2023-01-28] MEDS: RISPERIDONE 1 MG TABLET PO SCH ×2 (09:27→20:56)
[2023-01-28 12:00] VITALS: BP 139/80
[2023-01-28 16:00] VITALS: BP 163/88
[2023-01-28] MEDS: RIVASTIGMINE 4.6MG/24HR PATCH TD SCH (18:48)
[2023-01-28 19:12] VITALS: BP 153/74
[2023-01-28] MEDS: CEFTRIAXONE 1G VIAL IVP SCH (20:35)
[2023-01-29 00:12] VITALS: BP 148/86
[2023-01-29 03:12] VITALS: BP 140/90
[2023-01-29] MEDS: ACETAMINOPHEN 325 MG TAB PO PRN ×2 (04:17→10:55)
[2023-01-29] MEDS: INSULIN HUMULIN R 100 UNIT/ML 3ML SQ SCH ×3 (05:41→16:31)
[2023-01-29] MEDS: IPRATROPIUM/ALBUTEROL SULFATE 3 ML SOLUTION IH SCH ×2 (06:33→11:05)
[2023-01-29 08:00] VITALS: BP 148/92
[2023-01-29] MEDS: THIAMINE HCL 100 MG/ML 2ML VIAL IVP SCH (09:00)
[2023-01-29] MEDS: LACTULOSE 20 GM/30 ML UDCUP PO SCH (09:00)
[2023-01-29] MEDS: PANTOPRAZOLE 40 MG/VIAL IVP SCH ×2 (09:00→10:53)
[2023-01-29] MEDS ORDERED: PREDNISONE 20 MG TABLET PO SCH (09:00)
[2023-01-29] MEDS: RISPERIDONE 1 MG TABLET PO SCH (10:55)
[2023-01-29 12:10] VITALS: BP 150/97
[2023-01-29] MEDS ORDERED: METOPROLOL TARTRATE 25 MG TAB PO SCH ×2 (15:00→21:00)
[2023-01-29 15:01] LABS: BASOPHILS % (AUTO) 0.1 % (0.0-5.0); EOSINOPHILS % (AUTO) 0.8 % (0.0-8.0); HEMATOCRIT 32.9 % (36-48); LYMPHOCYTES % (AUTO) 10.7 % (21.0-51.0); MEAN CORPUSCULAR HEMOGLOBIN 29.4 pg (27.0-33.0); MEAN CORPUSCULAR HGB CONC 32.8 g/dL (32.0-36.0); MEAN CORPUSCULAR VOLUME 89.6 fL (79-99); MONOCYTES % (AUTO) 6.7 % (3.0-13.0); NEUTROPHILS % (AUTO) 81.1 % (40.0-77.0); PLATELET COUNT (AUTO) 183 K/uL (130-400); RED BLOOD CELL COUNT(AUTO) 3.67 MIL/uL (4.00-5.50); RED CELL DISTRIBUTION WIDTH 13.8 % (11.0-15.5); WHITE BLOOD COUNT (AUTO) 8.9 K/uL (4.8-10.8)
[2023-01-29 15:12] LABS: CREATININE 0.8 mg/dL (0.5-1.5); POTASSIUM 3.3 mmol/L (3.5-5.1)
[2023-01-29 15:16] LABS: MAGNESIUM 1.7 mg/dL (1.80-2.40); PHOSPHORUS 3.1 mg/dL (2.5-4.9); TOTAL PROTEIN, SERUM 6.2 g/dL (6.0-8.3)
[2023-01-29] MEDS ORDERED: AMLODIPINE 5 MG TAB PO SCH (15:30)
[2023-01-29 16:00] VITALS: BP 139/84
[2023-01-29] MEDS: POTASSIUM CHLORIDE 10% ELIXIR 20 MEQ/15 ML UDCUP PO PRN (17:04)
[2023-01-29] MEDS: RIVASTIGMINE 4.6MG/24HR PATCH TD SCH (17:04)
[2023-01-29] MEDS ORDERED: CLOPIDOGREL 75MG TAB ONE (17:18)
[2023-01-29] MEDS ORDERED: ASPIRIN 81MG CHEW TAB ONE (17:18)
[2023-01-29] MEDS ORDERED: ASPIRIN 81MG CHEW TAB PO SCH (17:30)
[2023-01-29] MEDS ORDERED: CLOPIDOGREL 75MG TAB PO SCH (17:30)
[2023-01-29] MEDS ORDERED: RISP1TAB89 PO (17:33)
[2023-01-29] MEDS ORDERED: ALBU90AE2 IH (17:33)
[2023-01-29] MEDS ORDERED: METO25 PO (17:33)
[2023-01-29] MEDS ORDERED: INHA1EAC51 MC (17:33)
[2023-01-29] MEDS ORDERED: RIVA1PAT TD (17:33)
[2023-01-29] MEDS ORDERED: CLOP-31 PO (17:33)
[2023-01-29] MEDS ORDERED: PRED20B PO (17:33)
[2023-01-29] MEDS ORDERED: AMLO5TAB4 PO (17:33)
[2023-01-29] MEDS ORDERED: ASPI-1005 PO (17:33)
[2023-01-29] MEDS ORDERED: PANT40TA PO (17:33)
[2023-01-30] MEDS ORDERED: CLOPIDOGREL 75MG TAB PO SCH ×2 (09:00)
[2023-01-30] MEDS ORDERED: PANTOPRAZOLE 40 MG TAB DR PO SCH (09:00)
[2023-01-30] MEDS ORDERED: ASPIRIN 81MG CHEW TAB PO SCH ×2 (09:00)
[2023-01-30] MEDS ORDERED: AMLODIPINE 5 MG TAB PO SCH (09:00)
== END 2023-01-29 19:20 | disposition home or self-care (01) | DRG 871 ==
LOC: EDH 09:35 → EDHIP 11:18 → 2BH 14:15 → 2DH 01-25 05:52 → UNDODISIN 01-29 22:04
PROVIDERS: ADMIT Internal Medicine; ATTEND Internal Medicine
PROC: 0BH17EZ Insertion of Endotracheal Airway into Trachea, Via Natural or Artificial Opening (ICD-10-PCS; principal; 2023-01-18)
PROC: 5A1945Z Respiratory Ventilation, 24-96 Consecutive Hours (ICD-10-PCS; 2023-01-18)
PROC: 5A09357 Assistance with Respiratory Ventilation, Less than 24 Consecutive Hours, Continuous Positive Airway Pressure (ICD-10-PCS; 2023-01-21)
DX: A40.3 Sepsis due to Streptococcus pneumoniae (principal); I21.A1 Myocardial infarction type 2; J69.0 Pneumonitis due to inhalation of food and vomit; J96.01 Acute respiratory failure with hypoxia; R65.21 Severe sepsis with septic shock; J96.02 Acute respiratory failure with hypercapnia; E87.20 Acidosis, unspecified; N17.9 Acute kidney failure, unspecified; G93.1 Anoxic brain damage, not elsewhere classified; E87.1 Hypo-osmolality and hyponatremia; J44.0 Chronic obstructive pulmonary disease with (acute) lower respiratory infection; J44.1 Chronic obstructive pulmonary disease with (acute) exacerbation; J90 Pleural effusion, not elsewhere classified; M62.82 Rhabdomyolysis; Z20.822 Contact with and (suspected) exposure to COVID-19; B19.20 Unspecified viral hepatitis C without hepatic coma; F19.10 Other psychoactive substance abuse, uncomplicated; I25.2 Old myocardial infarction; D64.9 Anemia, unspecified; D69.6 Thrombocytopenia, unspecified; E66.9 Obesity, unspecified; E87.6 Hypokalemia; E87.8 Other disorders of electrolyte and fluid balance, not elsewhere classified; F32.A Depression, unspecified; F43.10 Post-traumatic stress disorder, unspecified; F91.9 Conduct disorder, unspecified; I51.7 Cardiomegaly; M79.7 Fibromyalgia; K74.60 Unspecified cirrhosis of liver; Z68.32 Body mass index [BMI] 32.0-32.9, adult; Z90.710 Acquired absence of both cervix and uterus; Z79.899 Other long term (current) drug therapy
CPT/HCPCS: 31500; 36415; 36600; 70450; 71045; 74230; 76770; 80048; 80053; 80074; 80305; 81001; 82140; 82175; 82435; 82542; 82550; 82600; 82607; 82728; 82746; 82803; 82947; 82948; 83036; 83540; 83550; 83605; 83735; 83874; 83880; 84100; 84132; 84145; 84295; 84443; 84484; 85018; 85025; 85027; 85045; 85378; 85520; 85610; 85730; 86022; 86140; 87040; 87071; 87077; 87088; 87186; 87205; 87635; 87804; 87902; 92526; 92610; 92611; 93005; 93306; 94002; 94003; 94640; 94664; 96374; 97039; 99291; C1751; C1894; C9113; G0378; G0481; J0456; J0696; J1644; J1650; J1940; J2060; J2250; J2405; J2543; J2920; J3010; J3360; J3411; J3475; J3480; J3486; J3490; Q0163